=== PATIENT | female | born 1980 | race Two or more races ===

== ENCOUNTER 2019-04-14 07:58 | Inpatient (IN) ==
[2019-04-14 08:07] VITALS: BMI 40.7
--- NOTE | 2019-04-14 08:34 | DR.NAUSEAF ---
HPI Time Seen Time Seen by Provider: 04/14/19 08:25 Primary Care Physician Primary Care Physician: DREW HPI Comment HPI Comment: PATIENT IS 38 YR OLD ER WITH 2 DAYS HISTORY OF NAUSEA, VOMITING AND NOT HOLDING DOWN FLUID OR FOOD. SHE HAS NO SIGNIFICANT PAST MEDICAL ILLNESS. SHE KATHY DIARRHEA, COUGH, CONGESTION OR SINUS DRAINAGE. DID NOT TAKE FLU SHOT. HAVE NOT BEING IN CONTACT WITH SOMEONE SICK. SHE IS WEAK ANE DIZZY. NO ABDOMINAL PAIN. SPEAKING TO PATIENT VIA AN HEARING THERAPIST THAT CAME WITH HER. SHE SPEAK DANISH. Complaints Chief Complaint Doctors Comments: NAUSEA, VOMITING TIMES 2 DAYS. Chief Complaint:: PT C/O NOT BEING ABLE TO HOLD ANYTHING DOWN FOR 2 DAYS ,,BR Self Treatment fo Chief Complaint: PT SPEAKING NO FRENCH , MANAGER INVENTORY CONTROL PRESENT AND WHEN ASKED QUESTIONS PT IS VERY VAGUE AND DOES NOT KNOW ,BR Reviewed Nurses Notes Reviewed: Yes Source History Provided: Patient Mode of Arrival Mode of Arrival: Ambulatory Timing Onset of Chief Complaint: 04/12/19 Context Onset: Spontaneous Recent: None : No History of: None Quality Quality: Food Particles Associated Signs and Symptoms Abdominal Pain Quality: Other (NONE.) Symptoms: denies Fever (NONE OF ABOVE.) Other History Other History: NO PAST MEDICAL ILLNESS REPORTED. PMH PMH Past Medical History: No Past Surgical History: No Family History History of Family Medical Conditions: No Social History Does patient currently use any type of tobacco product: No Have you used tobacco products in the last 12 months: No Type of Tobacco Use: None Does any household member use tobacco: No Alcohol Use: None Do you use any recreational Drugs:: No Lives With: Family Lives Where: Home infectious screening In the last 2 months have you had wt loss of >10#?: NO Have you had fever, night sweats or hemotysis?: No Have you traveled outside the country in the last 6 months?: No Isolation: Standard ROS Review of Systems Constitutional: No Symptoms Reported, See HPI, Weakness and Fatigue; negative Fever Eyes: No Symptoms Reported; negative Blurred Vision and Diplopia ENTM: No Symptoms Reported; negative Ear Pain, Nose Discharge, Nose Congestion and Throat Pain Respiratoy: No Symptoms Reported and See HPI; negative Moist Cough, Short of Breath and Wheezing Cardiovascular: No Symptoms Reported and See HPI; negative Chest Pain and Edema Gastrointestinal/Abdominal: See HPI, Abdominal Pain, Nausea and Vomiting; negative Diarrhea Genitourinary: No Symptoms Reported and See HPI; negative Dysuria, Frequency and Hematuria Neurological: See HPI, Weakness and Dizziness; negative Headache Musculoskeletal: No Symptoms Reported and See HPI Integumentary: See HPI and Dryness Hematologic/Lymphatic: No Symptoms Reported and See HPI; negative Easy Bruising and Swollen Glands Endocrine: No Symptoms Reported, See HPI, Increased Thirst, Increased Urine and Decreased Appetite Psychiatric: No Symptoms Reported and See HPI All Other Systems: Reviewed and Negative PE Vital Signs Vitals: Temperature 96.9 F Pulse Rate 122 Respiratory Rate 20 Blood Pressure 116/66 O2 Sat by Pulse Oximetry 94 General Limitations: No Limitations General Appearance: Alert and In No Apparent Distress Head Head Exam: Normal Inspection and Atraumatic Eyes Eye exam: Normal Appearance and PERRL; negative Scleral Icterus and Conjunctival Injection ENT ENT Exam: Normal Exam, Normal Oropharynx, Normal External Ear Exam and TM's Normal Bilaterally Neck Neck Exam: Normal Inspection and Trachea Midline; negative Tenderness and Lymphadenopathy Chest Chest Inspection: Normal Inspection and Symmetric Chest Wall Rise; negative Tenderness Respiratory Respiratory Exam: Normal Lung Sounds Bilat; negative Accessory Muscle Use, Chest Wall Tenderness and Respiratory Distress Respiratory Exam: Bilateral: Clear to Auscultation Cardiovascular Cardiovascular Exam: Normal Rhythm and Tachycardia; negative Systolic Murmur and Diastolic Murmur Abdominal Exam Abdominal Exam: Normal Inspection, Normal Bowel Sounds and Soft; negative Tenderness Rectal Rectal Exam: Deferred External Exam: Female: Deferred : Speculum Exam (Female): Deferred : Bimanual Exam (female): Deferred Extremities Extremities Exam: Normal Inspection Back Back Exam: Normal Inspection Neurologic Neurological Exam: Alert, Oriented X3 and CN II-XII Intact; negative Motor Sensory Deficit Psychiatric Psychiatric Exam: Normal Affect and Normal Mood Skin Skin Exam: Dry MDM Differential Diagnosis Differential Diagnosis: Considerations may Include:: Bowel Obstruction, Cholecystitis, Diabetes/DKA, Gastritis, Gastroenteritis, Inflammatory BD, Pancreatitis, , PUD, Urinary Tract Infection and Urolithiasis COURSE Treatment Treatment: SEE ORDERS. NS ONE LITER IV BOLUS. Consultation Consultation Comments: DISCUSSED PATIENT WITH DR. GO, HE WILL ADMIT PATIENT. Education/Counseling Education/Counseling: Patient and Family Educated On: Diagnosis ROR Labs Reviewed Laboratory Results Reviewed?: Yes Result Diagrams: 04/19/19 05:28 04/19/19 05:28 Laboratory: 04/14/19 11:37 Urine,Clean Catch Urine Culture - Final Escherichia Coli WBC 13.7 X10^3/uL (3.6-10.0) H 04/14/19 09:09 RBC 3.99 X10^6/uL (3.5-5.4) 04/14/19 09:09 Hgb 11.6 g/dL (12.0-16.0) L 04/14/19 09:09 Hct 34.5 % (36.0-47.0) L 04/14/19 09:09 MCV 86.6 fL (80.0-100.0) 04/14/19 09:09 MCH 29.2 pg (27.0-34.0) 04/14/19 09:09 MCHC 33.7 g/dL (33.0-35.0) 04/14/19 09:09 RDW 15.8 % (11.6-16.5) 04/14/19 09:09 Plt Count 1091 X10^3/uL (150.0-450.0) H* 04/14/19 09:09 Plt Count Comment Increased (ADEQUATE) A 04/14/19 09:09 MPV 7.2 fL (7.4-11.0) L 04/14/19 09:09 Neut % (Auto) 82.3 % (42.0-75.0) H 04/14/19 09:09 Lymph % (Auto) 10.6 % (21.0-51.0) L 04/14/19 09:09 [place] % (Auto) 6.0 % (0.0-13.0) 04/14/19 09:09 Eos % (Auto) 0.4 % (0.9-2.9) L 04/14/19 09:09 Baso % (Auto) 0.7 % (0.2-1.0) 04/14/19 09:09 Neut # (Auto) 11.3 x10^3/uL (2.2-4.8) H 04/14/19 09:09 Lymph # (Auto) 1.5 X10^3/uL (1.3-2.9) 04/14/19 09:09 Isabela # (Auto) 0.8 x10^3/uL (0.3-0.8) 04/14/19 09:09 Eos # (Auto) 0.1 x10^3/uL (0.0-0.2) 04/14/19 09:09 Baso # (Auto) 0.1 X10^3/uL (0.0-0.1) 04/14/19 09:09 Absolute Nucleated RBC 0.0 /100WBC 04/14/19 09:09 Plt Morphology Comment Normal (NORMAL) 04/14/19 09:09 RBC Morphology Normal (NORMAL) 04/14/19 09:09 Sodium 125 mmol/L (136-145) L* 04/14/19 09:09 Corrected Sodium 133 mmol/L (136-145) L 04/14/19 09:09 Potassium 4.5 mmol/L (3.5-5.1) 04/14/19 09:09 Chloride 93 mmol/L (98-107) L 04/14/19 09:09 Carbon Dioxide 17.2 mmol/L (21-32) L 04/14/19 09:09 BUN 46 mg/dL (7-18) H 04/14/19 09:09 Creatinine 2.82 mg/dL (0.55-1.02) H 04/14/19 09:09 Est GFR (MDRD) Af Amer 24 (>60) L 04/14/19 09:09 Est GFR (MDRD) Non-Af 20 (>60) L 04/14/19 09:09 Glucose 416 mg/dL (65-99) H 04/14/19 09:09 POC Glucose (mg/dL) 333 mg/dL (65-99) H 04/14/19 13:37 Hemoglobin A1c 11.9 % 04/14/19 09:09 Calcium 9.3 mg/dL (8.5-10.1) 04/14/19 09:09 Corrected Calcium 10.8 mg/dL (8.5-10.1) H 04/14/19 09:09 Total Bilirubin 1.00 mg/dL (0.2-1.0) 04/14/19 09:09 AST 29 Units/L (15-37) 04/14/19 09:09 ALT 25 Units/L (12-78) 04/14/19 09:09 Alkaline Phosphatase 177 Units/L (46-116) H 04/14/19 09:09 Total Protein 8.7 g/dL (6.4-8.2) H 04/14/19 09:09 Albumin 2.1 g/dL (3.4-5.0) L 04/14/19 09:09 Globulin 6.6 g/dL (2.5-4.5) H 04/14/19 09:09 Albumin/Globulin Ratio 0.3 Ratio (1.1-2.1) L 04/14/19 09:09 Amylase 64 Units/L (25-115) 04/14/19 09:09 Lipase 652 Units/L (73-393) H 04/14/19 09:09 HCG, Qual Negative <10 mIU/mL 04/14/19 09:09 Specimen Type Clean catch urine 04/14/19 11:37 Urine Color Yellow (YELLOW) 04/14/19 11:37 Urine Appearance Cloudy (CLEAR) 04/14/19 11:37 Urine pH 6.0 (5.0 - 8.0) 04/14/19 11:37 Ur Specific [place] 1.010 (1.000-1.030) 04/14/19 11:37 Urine Protein 3+ (NEGATIVE) 04/14/19 11:37 Urine Glucose (UA) 4+ (NEGATIVE) 04/14/19 11:37 Urine Ketones 1+ (NEGATIVE) 04/14/19 11:37 Urine Occult Blood 4+ (NEGATIVE) 04/14/19 11:37 Urine Nitrite Negative (NEGATIVE) 04/14/19 11:37 Urine Bilirubin Negative (NEGATIVE) 04/14/19 11:37 Urine Urobilinogen Normal (NORMAL) 04/14/19 11:37 Ur Leukocyte Esterase 3+ (NEGATIVE) 04/14/19 11:37 Urine RBC 10-20 /HPF (0-3) A 04/14/19 11:37 Urine WBC 20-30 /HPF (0-5) A 04/14/19 11:37 Ur Squamous Epith Cells Rare /HPF (NEGATIVE) 04/14/19 11:37 Urine Bacteria Negative /HPF (NEGATIVE) 04/14/19 11:37 Urine Mucus Moderate /HPF (NEGATIVE) 04/14/19 11:37 Ur Culture Indicated? Yes/culture set up 04/14/19 11:37 Acetone, Semi-Quant Negative (NEGATIVE) 04/14/19 09:09 Influenza Type A (PCR) Negative (NEGATIVE) 04/14/19 09:09 Influenza Type B (PCR) Negative (NEGATIVE) 04/14/19 09:09 S. pyogenes (TEM-PCR) Not detected (NOT DETECT) 04/14/19 09:09 XRAY XRAY Interpreted by: Radiologist (REPORT NOTED.) and Self (NO ACUTE FINDINGS.DISCUSSED WITH PATIENT.) Opioid Opioid Risk Tool Age (Alvaro box if 16-45): Yes History of Preadolescent Sexual Abuse: No Total: 1 Total Score Risk Category: Low Risk Copyright: Haris DUENAS predicting aberrant behaviors Diagnosis Discharge Problem: Diabetes mellitus, new onset, Elevated lipase UTI (urinary tract infection) Qualifiers: Urinary tract infection type: acute cystitis Hematuria presence: with hematuria Qualified Code(s): N30.01 - Acute cystitis with hematuria Instructions Instructions: Type 2 Diabetes Mellitus, Diagnosis, Adult Tips for Eating Away From Home If You Have Diabetes Diabetes Mellitus and Sick Day Management Hyperglycemia, [id number] Type 2 Diabetes Mellitus, Self Care, Adult, Letm-ev-Pyow Pyelonephritis, Adult, Zcri-on-Onjg Coping With Diabetes Blood Glucose Monitoring, Adult E. Coli Infection Diabetes Mellitus and Nutrition Forms: Patient Portal
[2019-04-14] MEDS ORDERED: ZOFRAN INJ 4 MG VIAL IM ONE (08:55)
[2019-04-14] MEDS ORDERED: ZOFRAN INJ 4 MG VIAL ONE (09:03)
[2019-04-14 09:15] LABS: BASOPHILS # (AUTO) 0.1 X10^3/uL (0.0-0.1); BASOPHILS % (AUTO) 0.7 % (0.2-1.0); EOSINOPHILS # (AUTO) 0.1 x10^3/uL (0.0-0.2); EOSINOPHILS % (AUTO) 0.4 % (0.9-2.9); HEMATOCRIT 34.5 % (36.0-47.0); HEMOGLOBIN 11.6 g/dL (12.0-16.0); LYMPHOCYTES # (AUTO) 1.5 X10^3/uL (1.3-2.9); LYMPHOCYTES % (AUTO) 10.6 % (21.0-51.0); MEAN CORPUSCULAR HEMOGLOBIN 29.2 pg (27.0-34.0); MEAN CORPUSCULAR HGB CONC 33.7 g/dL (33.0-35.0); MEAN CORPUSCULAR VOLUME 86.6 fL (80.0-100.0); MEAN PLATELET VOLUME 7.2 fL (7.4-11.0); MONOCYTES # (AUTO) 0.8 x10^3/uL (0.3-0.8); NEUTROPHILS # (AUTO) 11.3 x10^3/uL (2.2-4.8); NEUTROPHILS % (AUTO) 82.3 % (42.0-75.0); RED BLOOD COUNT 3.99 X10^6/uL (3.5-5.4); RED CELL DISTRIBUTION WIDTH 15.8 % (11.6-16.5); WHITE BLOOD COUNT 13.7 X10^3/uL (3.6-10.0)
[2019-04-14 09:25] LABS: CALCIUM 9.3 mg/dL (8.5-10.1); CARBON DIOXIDE 17.2 mmol/L (21-32); CREATININE 2.82 mg/dL (0.55-1.02)
[2019-04-14 09:26] LABS: PLATELET COUNT 1091 X10^3/uL (150.0-450.0)
[2019-04-14 09:28] LABS: PLATELET MORPHOLOGY COMMENT NORMAL (NORMAL)
[2019-04-14 09:30] LABS: ALBUMIN 2.1 g/dL (3.4-5.0); COR CA(FOR HYPOALB) 10.8 mg/dL (8.5-10.1); TOTAL PROTEIN 8.7 g/dL (6.4-8.2)
[2019-04-14 09:34] LABS: SERUM PREGNANCY TEST, QUAL NEGATIVE <10 mIU/mL
[2019-04-14] MEDS ORDERED: NS 1000 ML 1,000 ML IV ONE (09:50)
[2019-04-14] MEDS ORDERED: NS 1000 ML 1,000 ML ONE (09:51)
[2019-04-14 09:55] LABS: STREP A BY PCR NOT DETECTED (NOT DETECT)
[2019-04-14 11:44] LABS: BILIRUBIN,URINE NEGATIVE (NEGATIVE); KETONES,URINE 1+ (NEGATIVE); NITRITES,URINE NEGATIVE (NEGATIVE)
[2019-04-14 11:50] LABS: BLOOD/HEMOGLOBIN,URINE 4+ (NEGATIVE); GLUCOSE, URINE 4+ (NEGATIVE); LEUKOCYTE ESTERASE ,URINE 3+ (NEGATIVE); PROTEIN,URINE 3+ (NEGATIVE); UROBILINOGEN,URINE NORMAL (NORMAL)
[2019-04-14 12:03] LABS: APPEARANCE,URINE CLOUDY (CLEAR); COLOR,URINE YELLOW (YELLOW)
[2019-04-14 12:04] LABS: BACTERIA,URINE NEGATIVE /HPF (NEGATIVE); MUCUS,URINE MODERATE /HPF (NEGATIVE); SQUAMOUS EPITHELIAL CELL,UR RARE /HPF (NEGATIVE)
[2019-04-14] MEDS ORDERED: AFLURIA II4 or FLUARIX II4 IM ONE ×2 (16:14→20:21)
[2019-04-14] MEDS: NS 1000 ML 1,000 ML IV SCH ×2 (16:18→23:45)
[2019-04-14] MEDS ORDERED: GLUCOPHAGE PO SCH (17:00)
[2019-04-14] MEDS ORDERED: GLUCOPHAGE ONE (17:02)
[2019-04-14] MEDS: PROTONIX INJ 40 MG VIAL IVP SCH (18:01)
[2019-04-14] MEDS: HumuLIN R SUBCUT PRN ×2 (18:02→21:05)
[2019-04-14] MEDS ORDERED: SNACK - Diabetic Appropriate PO SCH (20:00)
[2019-04-14] MEDS: SNACK - Diabetic Appropriate PO SCH (20:59)
[2019-04-15] MEDS: NS 1000 ML 1,000 ML IV SCH ×4 (00:22→17:18)
[2019-04-15 06:07] LABS: BASOPHILS # (AUTO) 0.2 X10^3/uL (0.0-0.1); BASOPHILS % (AUTO) 1.4 % (0.2-1.0); EOSINOPHILS % (AUTO) 0.3 % (0.9-2.9); HEMATOCRIT 31.3 % (36.0-47.0); HEMOGLOBIN 10.4 g/dL (12.0-16.0); LYMPHOCYTES # (AUTO) 1.5 X10^3/uL (1.3-2.9); LYMPHOCYTES % (AUTO) 11.9 % (21.0-51.0); MEAN CORPUSCULAR HEMOGLOBIN 29.1 pg (27.0-34.0); MEAN CORPUSCULAR HGB CONC 33.3 g/dL (33.0-35.0); MEAN CORPUSCULAR VOLUME 87.4 fL (80.0-100.0); MEAN PLATELET VOLUME 7.4 fL (7.4-11.0); MONOCYTES # (AUTO) 0.9 x10^3/uL (0.3-0.8); MONOCYTES % (AUTO) 7.4 % (0.0-13.0); NEUTROPHILS # (AUTO) 9.9 x10^3/uL (2.2-4.8); PLATELET COUNT 852 X10^3/uL (150.0-450.0); RED BLOOD COUNT 3.58 X10^6/uL (3.5-5.4); RED CELL DISTRIBUTION WIDTH 15.7 % (11.6-16.5); WHITE BLOOD COUNT 12.5 X10^3/uL (3.6-10.0)
[2019-04-15 06:15] LABS: ALBUMIN 1.8 g/dL (3.4-5.0); CALCIUM 8.5 mg/dL (8.5-10.1); CARBON DIOXIDE 17.9 mmol/L (21-32); COR CA(FOR HYPOALB) 10.3 mg/dL (8.5-10.1); CREATININE 2.5 mg/dL (0.55-1.02); TOTAL PROTEIN 7.4 g/dL (6.4-8.2)
[2019-04-15 06:18] LABS: PLATELET MORPHOLOGY COMMENT NORMAL (NORMAL)
[2019-04-15] MEDS: HumuLIN R SUBCUT PRN ×4 (06:21→21:12)
[2019-04-15] MEDS ORDERED: AMARYL TAB 4 MG PO SCH (07:00)
--- NOTE | 2019-04-15 09:39 | CT ---
HISTORYN/V ABD TENDERNESS, PANCREATITIS. NEW ONSET OF DM, PATIENT'S GFR:20 DRANK ORAL CONTRASTSTUDYCT abdomen and pelvis after oral enhancement of the intestinal tract but without intravenous contrast infusion. Sagittal and coronal reformations were provided. Dose reduction techniques were utilized.COMPARISONNoneFINDINGSThe visualized lung bases are clear. There is no effusion. The liver and spleen and pancreas and adrenal glands are unremarkable. The gallbladder is unremarkable. There is stranding of fat planes about the kidneys in there are multiple tiny bubbles of gas around the upper pole of the right kidney some of which appear to be subcapsular. There is no hydronephrosis or renal calculus demonstrated. Kidneys appear swollen. There is no ascites or retroperitoneal adenopathy. There is no bowel distention or inflammation of bowel. The uterus is unremarkable. There is no adnexal mass. The urinary bladder is unremarkable. The appendix is normal. 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
[2019-04-15] MEDS: PROTONIX INJ 40 MG VIAL IVP SCH (09:40)
--- NOTE | 2019-04-15 14:28 | DR.H&P ---
H&P - History & Physical for Day of: H&P Date: 04/14/19 - Chief Complaint Chief Complaint: N/V, WEAKNESS, FEVER - History of Present Illness History of Present Illness: PT IS 38 FEMALE ER ADMISSION WITH NEW ONSET DM, DEHYDRATION, HYPONATREMIA. PT DENIES ANY PMH OF DM OR HTN. PT HAD NEGATIVE ACETONE NEGATIVE ON ADMISSION. PT STARTED ON SSI, NPO, IV HYDRATION. - Past Medical History Past Medical History: denies: Asthma, Coronary Artery Disease, Hypertension, Hypothyroidism - Past Surgical History Surgical History: No History - Family History Family Medical History: Diabetes Mellitus, Hypertension - Social History Does patient currently use any type of tobacco product: No Have you used tobacco products in the last 12 months: No Type of Tobacco Use: None Does any household member use tobacco: No Alcohol Use: None - Medications Home Medications: No Known Drug Allergies Allergy (Verified 04/14/19 08:01) CONTINUE taking the following medications NK 04/14/19 [History] - Review of Systems Constitutional: Weakness Eyes: No Symptoms Reported ENT: No Symptoms Reported Respiratory: No Symptoms Reported Cardiovascular: No Symptoms Reported Gastrointestinal: Nausea, Vomiting, Abdominal Pain Genitourinary: Frequency Musculoskeletal: No Symptoms Reported Skin: No Symptoms Reported Neurological: No Symptoms Reported - Physical Exam Vital Signs: Temperature 97.5 F Pulse Rate [Left Brachial] 98 Pulse Rate 122 Respiratory Rate 18 Blood Pressure [Left Arm] 131/68 Blood Pressure 116/66 O2 Sat by Pulse Oximetry 96 Oriented: Normal Eyes: Normal Ear: Normal Nose: Normal Throat: Normal Respiratory: RLL Diminished, LLL Diminished Cardiovascular: Normal : Normal Auscultation: Bowel Sounds: Normal Palpation: Normal Tenderness: Epigastric, Periumbilical, Mild Skin: Decreased Turgur Musculoskeletal: Back:Thoracic, Back:Lumbar Psychiatric: Anxiety Affect: Anxious Speech Pattern: Clear, Appropriate - Assessment/Plan (1) Diabetes mellitus, new onset Status: Acute Plan: ADMIT, IV HYDRATION SSI. SERUM ACETONE, BP CONTROL. STRICT I &OS, CT ABDPELVIS Q AM. NPO, ABG ON ADMISSION. PPI THERAPY, NAUSEA CONTROL. AMYLASE/LIPASE (2) Dehydration Status: Acute (3) Acute hyponatremia Status: Acute - Allergies Allergies/Adverse Reactions: Allergies Allergy/AdvReac Type Severity Reaction Status Date / Time No Known Drug Allergies Allergy Verified 04/14/19 08:01
[2019-04-15] MEDS: ROCEPHIN VIAL 1 GRAM 1 G in NS 100 ML IV + SPIKE MINIBAG* 100 ML IV SCH (18:35)
[2019-04-15] MEDS: SNACK - Diabetic Appropriate PO SCH (20:53)
[2019-04-16] MEDS: NS 1000 ML 1,000 ML IV SCH ×5 (00:05→17:18)
[2019-04-16 05:54] LABS: BASOPHILS # (AUTO) 0.1 X10^3/uL (0.0-0.1); BASOPHILS % (AUTO) 1.3 % (0.2-1.0); EOSINOPHILS % (AUTO) 0.3 % (0.9-2.9); HEMATOCRIT 28.7 % (36.0-47.0); HEMOGLOBIN 9.5 g/dL (12.0-16.0); LYMPHOCYTES # (AUTO) 1.6 X10^3/uL (1.3-2.9); LYMPHOCYTES % (AUTO) 13.6 % (21.0-51.0); MEAN CORPUSCULAR HGB CONC 33.2 g/dL (33.0-35.0); MEAN CORPUSCULAR VOLUME 87.3 fL (80.0-100.0); MEAN PLATELET VOLUME 7.1 fL (7.4-11.0); MONOCYTES # (AUTO) 0.8 x10^3/uL (0.3-0.8); MONOCYTES % (AUTO) 6.6 % (0.0-13.0); NEUTROPHILS # (AUTO) 9.2 x10^3/uL (2.2-4.8); NEUTROPHILS % (AUTO) 78.2 % (42.0-75.0); PLATELET COUNT 867 X10^3/uL (150.0-450.0); RED BLOOD COUNT 3.29 X10^6/uL (3.5-5.4); RED CELL DISTRIBUTION WIDTH 15.6 % (11.6-16.5); WHITE BLOOD COUNT 11.8 X10^3/uL (3.6-10.0)
[2019-04-16 06:08] LABS: ALBUMIN 1.6 g/dL (3.4-5.0); CALCIUM 8.3 mg/dL (8.5-10.1); CARBON DIOXIDE 17.1 mmol/L (21-32); COR CA(FOR HYPOALB) 10.2 mg/dL (8.5-10.1); CREATININE 2.13 mg/dL (0.55-1.02)
[2019-04-16] MEDS: HumuLIN R SUBCUT PRN (06:20)
[2019-04-16 06:28] LABS: PLATELET MORPHOLOGY COMMENT NORMAL (NORMAL)
[2019-04-16] MEDS: PROTONIX INJ 40 MG VIAL IVP SCH (11:05)
[2019-04-16] MEDS: ROCEPHIN VIAL 1 GRAM 1 G in NS 100 ML IV + SPIKE MINIBAG* 100 ML IV SCH (11:06)
[2019-04-16] MEDS: SNACK - Diabetic Appropriate PO SCH (20:30)
[2019-04-17 06:09] LABS: BASOPHILS # (AUTO) 0.1 X10^3/uL (0.0-0.1); BASOPHILS % (AUTO) 0.8 % (0.2-1.0); EOSINOPHILS # (AUTO) 0.1 x10^3/uL (0.0-0.2); EOSINOPHILS % (AUTO) 0.6 % (0.9-2.9); HEMATOCRIT 30.1 % (36.0-47.0); HEMOGLOBIN 10.1 g/dL (12.0-16.0); LYMPHOCYTES # (AUTO) 1.4 X10^3/uL (1.3-2.9); MEAN CORPUSCULAR HEMOGLOBIN 29.5 pg (27.0-34.0); MEAN CORPUSCULAR HGB CONC 33.5 g/dL (33.0-35.0); MEAN CORPUSCULAR VOLUME 88.1 fL (80.0-100.0); MEAN PLATELET VOLUME 7.2 fL (7.4-11.0); MONOCYTES # (AUTO) 0.7 x10^3/uL (0.3-0.8); MONOCYTES % (AUTO) 6.4 % (0.0-13.0); NEUTROPHILS # (AUTO) 8.4 x10^3/uL (2.2-4.8); NEUTROPHILS % (AUTO) 79.2 % (42.0-75.0); PLATELET COUNT 718 X10^3/uL (150.0-450.0); RED BLOOD COUNT 3.41 X10^6/uL (3.5-5.4); RED CELL DISTRIBUTION WIDTH 15.9 % (11.6-16.5); WHITE BLOOD COUNT 10.6 X10^3/uL (3.6-10.0)
[2019-04-17 06:27] LABS: ALBUMIN 1.6 g/dL (3.4-5.0); CALCIUM 8.1 mg/dL (8.5-10.1); CARBON DIOXIDE 16.5 mmol/L (21-32); CREATININE 1.98 mg/dL (0.55-1.02); TOTAL PROTEIN 6.8 g/dL (6.4-8.2)
[2019-04-17 06:45] LABS: PLATELET MORPHOLOGY COMMENT NORMAL (NORMAL)
[2019-04-17] MEDS: NS 1000 ML 1,000 ML IV SCH ×3 (07:57→17:15)
[2019-04-17] MEDS: PROTONIX INJ 40 MG VIAL IVP SCH ×2 (08:40→20:37)
[2019-04-17] MEDS: ROCEPHIN VIAL 1 GRAM 1 G in NS 100 ML IV + SPIKE MINIBAG* 100 ML IV SCH (08:41)
[2019-04-17 13:11] LABS: ABG BASE EXCESS -9.3 mmol/L (-2.0-2.0)
[2019-04-17 13:12] LABS: ABG HCO3 15.1 mmol/L (22-26)
[2019-04-17] MEDS: ZOFRAN INJ 4 MG VIAL IVP SCH ×2 (14:11→20:37)
[2019-04-17] MEDS: SNACK - Diabetic Appropriate PO SCH (20:37)
[2019-04-18] MEDS: NS 1000 ML 1,000 ML IV SCH ×4 (01:11→21:50)
[2019-04-18] MEDS: ZOFRAN INJ 4 MG VIAL IVP SCH (05:17)
[2019-04-18 05:33] LABS: BASOPHILS % (AUTO) 0.2 % (0.2-1.0); EOSINOPHILS # (AUTO) 0.1 x10^3/uL (0.0-0.2); EOSINOPHILS % (AUTO) 0.9 % (0.9-2.9); HEMATOCRIT 28.5 % (36.0-47.0); HEMOGLOBIN 9.4 g/dL (12.0-16.0); LYMPHOCYTES # (AUTO) 1.7 X10^3/uL (1.3-2.9); LYMPHOCYTES % (AUTO) 18.5 % (21.0-51.0); MEAN CORPUSCULAR HEMOGLOBIN 29.1 pg (27.0-34.0); MEAN CORPUSCULAR HGB CONC 33.1 g/dL (33.0-35.0); MEAN CORPUSCULAR VOLUME 87.9 fL (80.0-100.0); MONOCYTES # (AUTO) 0.6 x10^3/uL (0.3-0.8); MONOCYTES % (AUTO) 6.8 % (0.0-13.0); NEUTROPHILS # (AUTO) 6.8 x10^3/uL (2.2-4.8); NEUTROPHILS % (AUTO) 73.6 % (42.0-75.0); PLATELET COUNT 727 X10^3/uL (150.0-450.0); RED BLOOD COUNT 3.25 X10^6/uL (3.5-5.4); RED CELL DISTRIBUTION WIDTH 15.7 % (11.6-16.5); WHITE BLOOD COUNT 9.2 X10^3/uL (3.6-10.0)
[2019-04-18 05:45] LABS: ALBUMIN 1.6 g/dL (3.4-5.0); CARBON DIOXIDE 17.2 mmol/L (21-32); COR CA(FOR HYPOALB) 9.9 mg/dL (8.5-10.1); CREATININE 1.77 mg/dL (0.55-1.02); TOTAL PROTEIN 6.6 g/dL (6.4-8.2)
[2019-04-18 05:50] LABS: PLATELET MORPHOLOGY COMMENT NORMAL (NORMAL)
[2019-04-18] MEDS: HumuLIN R SUBCUT PRN (05:50)
[2019-04-18] MEDS: ROCEPHIN VIAL 1 GRAM 1 G in NS 100 ML IV + SPIKE MINIBAG* 100 ML IV SCH (09:04)
[2019-04-18] MEDS: PROTONIX INJ 40 MG VIAL IVP SCH ×2 (09:04→20:21)
--- NOTE | 2019-04-18 09:27 | RAD ---
HISTORYABD PAIN, DISTENTION, N/DSTUDYAcute abdominal seriesCOMPARISONCT abdomen and pelvis on April 15FINDINGSThe lungs are grossly clear and the heart size is prominent. There is no edema or effusion.The bowel gas pattern is unremarkable. No urinary tract calcification is demonstrated. There is residual barium from CT exam in the rectum. No significant bony abnormality is demonstrated.IMPRESSIONNegativeElectronically signed by: ABRAHAM RIVERA (Apr 18, 2019 09:26:26)
[2019-04-18] MEDS: ZOFRAN INJ 4 MG VIAL IVP PRN ×2 (10:37→17:50)
[2019-04-18] MEDS: INVANZ INJ 1 GM VIAL 1 GM in NS 100 ML IV + SPIKE MINIBAG* 100 ML IV SCH (10:37)
[2019-04-18] MEDS: SNACK - Diabetic Appropriate PO SCH (20:20)
[2019-04-19] MEDS: NS 1000 ML 1,000 ML IV SCH ×5 (02:23→17:24)
[2019-04-19 06:08] LABS: BASOPHILS # (AUTO) 0.3 X10^3/uL (0.0-0.1); BASOPHILS % (AUTO) 3.4 % (0.2-1.0); EOSINOPHILS # (AUTO) 0.1 x10^3/uL (0.0-0.2); EOSINOPHILS % (AUTO) 1.1 % (0.9-2.9); LYMPHOCYTES # (AUTO) 1.5 X10^3/uL (1.3-2.9); LYMPHOCYTES % (AUTO) 20.4 % (21.0-51.0); MEAN CORPUSCULAR HEMOGLOBIN 30.3 pg (27.0-34.0); MEAN CORPUSCULAR HGB CONC 34.4 g/dL (33.0-35.0); MEAN CORPUSCULAR VOLUME 88.1 fL (80.0-100.0); MEAN PLATELET VOLUME 7.1 fL (7.4-11.0); MONOCYTES # (AUTO) 0.5 x10^3/uL (0.3-0.8); NEUTROPHILS # (AUTO) 5.1 x10^3/uL (2.2-4.8); NEUTROPHILS % (AUTO) 68.1 % (42.0-75.0); PLATELET COUNT 656 X10^3/uL (150.0-450.0); RED BLOOD COUNT 2.96 X10^6/uL (3.5-5.4); RED CELL DISTRIBUTION WIDTH 15.4 % (11.6-16.5); WHITE BLOOD COUNT 7.5 X10^3/uL (3.6-10.0)
[2019-04-19 06:17] LABS: ALBUMIN 1.6 g/dL (3.4-5.0); CALCIUM 7.9 mg/dL (8.5-10.1); CARBON DIOXIDE 18.8 mmol/L (21-32); COR CA(FOR HYPOALB) 9.8 mg/dL (8.5-10.1); CREATININE 1.7 mg/dL (0.55-1.02); TOTAL PROTEIN 6.3 g/dL (6.4-8.2)
[2019-04-19 06:37] LABS: PLATELET MORPHOLOGY COMMENT NORMAL (NORMAL)
[2019-04-19] MEDS: INVANZ INJ 1 GM VIAL 1 GM in NS 100 ML IV + SPIKE MINIBAG* 100 ML IV SCH (09:44)
[2019-04-19] MEDS: PROTONIX INJ 40 MG VIAL IVP SCH ×2 (09:44→20:22)
[2019-04-19 13:49] LABS: ABG BASE EXCESS -3.9 mmol/L (-2.0-2.0); ABG HCO3 20.8 mmol/L (22-26)
[2019-04-19 13:50] LABS: ABG ALLEN TEST POS
--- NOTE | 2019-04-19 14:51 | RAD ---
HISTORYDiminished lung soundsSTUDYPortable AP [id number] normal heart size with grossly clear lungs. Lungs are underinflated, related to incomplete inspiration and portable technique. There is no evidence for pneumothorax or pleural effusion.IMPRESSIONNo acute or significant chest abnormality demonstrated.Electronically signed by: MIKE THOMAS (Apr 19, 2019 14:49:48)
[2019-04-19] MEDS: ZOFRAN INJ 4 MG VIAL IVP PRN (17:04)
[2019-04-19] MEDS: SNACK - Diabetic Appropriate PO SCH (20:16)
[2019-04-19] MEDS: HumuLIN R SUBCUT PRN (20:35)
[2019-04-20] MEDS: NS 1000 ML 1,000 ML IV SCH ×4 (00:09→18:00)
[2019-04-20 06:27] LABS: BASOPHILS # (AUTO) 0.1 X10^3/uL (0.0-0.1); BASOPHILS % (AUTO) 1.3 % (0.2-1.0); EOSINOPHILS # (AUTO) 0.1 x10^3/uL (0.0-0.2); EOSINOPHILS % (AUTO) 1.4 % (0.9-2.9); HEMATOCRIT 26.4 % (36.0-47.0); LYMPHOCYTES # (AUTO) 1.7 X10^3/uL (1.3-2.9); LYMPHOCYTES % (AUTO) 24.9 % (21.0-51.0); MEAN CORPUSCULAR HEMOGLOBIN 29.8 pg (27.0-34.0); MEAN CORPUSCULAR HGB CONC 33.9 g/dL (33.0-35.0); MEAN CORPUSCULAR VOLUME 87.7 fL (80.0-100.0); MEAN PLATELET VOLUME 6.8 fL (7.4-11.0); MONOCYTES # (AUTO) 0.5 x10^3/uL (0.3-0.8); MONOCYTES % (AUTO) 7.2 % (0.0-13.0); NEUTROPHILS # (AUTO) 4.5 x10^3/uL (2.2-4.8); NEUTROPHILS % (AUTO) 65.2 % (42.0-75.0); PLATELET COUNT 576 X10^3/uL (150.0-450.0); RED BLOOD COUNT 3.01 X10^6/uL (3.5-5.4); RED CELL DISTRIBUTION WIDTH 15.6 % (11.6-16.5); WHITE BLOOD COUNT 6.9 X10^3/uL (3.6-10.0)
[2019-04-20 06:37] LABS: ALBUMIN 1.6 g/dL (3.4-5.0); CALCIUM 7.9 mg/dL (8.5-10.1); CARBON DIOXIDE 21.1 mmol/L (21-32); COR CA(FOR HYPOALB) 9.8 mg/dL (8.5-10.1); CREATININE 1.57 mg/dL (0.55-1.02); TOTAL PROTEIN 6.3 g/dL (6.4-8.2)
[2019-04-20] MEDS: PROTONIX INJ 40 MG VIAL IVP SCH ×2 (08:23→21:05)
[2019-04-20] MEDS: INVANZ INJ 1 GM VIAL 1 GM in NS 100 ML IV + SPIKE MINIBAG* 100 ML IV SCH (08:23)
[2019-04-20] MEDS ORDERED: NS 100 ML IV 100 ML with VENOFER 400 MG IV NR ×2 (10:00)
[2019-04-20] MEDS: SNACK - Diabetic Appropriate PO SCH (20:00)
[2019-04-21] MEDS: NS 1000 ML 1,000 ML IV SCH ×6 (02:56→23:59)
[2019-04-21 06:39] LABS: BASOPHILS # (AUTO) 0.1 X10^3/uL (0.0-0.1); BASOPHILS % (AUTO) 1.1 % (0.2-1.0); EOSINOPHILS # (AUTO) 0.1 x10^3/uL (0.0-0.2); EOSINOPHILS % (AUTO) 1.7 % (0.9-2.9); HEMATOCRIT 25.6 % (36.0-47.0); HEMOGLOBIN 8.7 g/dL (12.0-16.0); LYMPHOCYTES # (AUTO) 1.8 X10^3/uL (1.3-2.9); LYMPHOCYTES % (AUTO) 25.9 % (21.0-51.0); MEAN CORPUSCULAR HEMOGLOBIN 29.4 pg (27.0-34.0); MEAN CORPUSCULAR HGB CONC 34.1 g/dL (33.0-35.0); MEAN CORPUSCULAR VOLUME 86.4 fL (80.0-100.0); MEAN PLATELET VOLUME 6.3 fL (7.4-11.0); MONOCYTES # (AUTO) 0.5 x10^3/uL (0.3-0.8); MONOCYTES % (AUTO) 6.8 % (0.0-13.0); NEUTROPHILS # (AUTO) 4.4 x10^3/uL (2.2-4.8); NEUTROPHILS % (AUTO) 64.5 % (42.0-75.0); PLATELET COUNT 557 X10^3/uL (150.0-450.0); RED BLOOD COUNT 2.97 X10^6/uL (3.5-5.4); RED CELL DISTRIBUTION WIDTH 15.7 % (11.6-16.5); WHITE BLOOD COUNT 6.8 X10^3/uL (3.6-10.0)
[2019-04-21 06:42] LABS: ALBUMIN 1.7 g/dL (3.4-5.0); CALCIUM 8.1 mg/dL (8.5-10.1); CARBON DIOXIDE 22.2 mmol/L (21-32); COR CA(FOR HYPOALB) 9.9 mg/dL (8.5-10.1); CREATININE 1.46 mg/dL (0.55-1.02); TOTAL PROTEIN 6.4 g/dL (6.4-8.2)
--- NOTE | 2019-04-21 07:13 | US ---
HISTORYAcute renal insufficiencySTUDYRENAL SONOGRAMTechnique: Multiple grayscale sonographic images were obtained.COMPARISONNoneFINDINGSThe right kidney measured 12 by 5.5 x 7 cm. Cortical thickness and cortical echogenicity are normal. No solid masses, hydronephrosis, stones, or perinephric fluid collections are identified. The left kidney measures 11.8 x 6.4 x 6.4 cm. Cortical thickness and cortical echogenicity were normal. No solid masses, stones, hydronephrosis, or perinephric fluid collections were identified.IMPRESSIONNo significant abnormality identifiedElectronically signed by: SCOTT ANGEL (Apr 21, 2019 07:11:14)
[2019-04-21] MEDS: ZOFRAN INJ 4 MG VIAL IVP PRN (08:43)
[2019-04-21] MEDS: PROTONIX INJ 40 MG VIAL IVP SCH ×2 (08:45→21:15)
[2019-04-21] MEDS: INVANZ INJ 1 GM VIAL 1 GM in NS 100 ML IV + SPIKE MINIBAG* 100 ML IV SCH (08:46)
--- NOTE | 2019-04-21 11:55 | CT ---
HISTORYABD PAIN, N/VSTUDYCT of abdomen and pelvis after oral enhancement of the gastrointestinal tract. Sagittal and coronal reformations were provided. Dose reduction techniques were utilized.COMPARISONFebruary 2019FINDINGSThe lung bases remain clear. The liver and spleen and pancreas and adrenal glands are unremarkable. There is resolution of previously demonstrated gas subcapsular about the upper pole of the right kidney. Stranding of fat planes about the kidneys persists but is improved, left greater than right. There is no renal calculus or hydronephrosis. The kidneys remain enlarged. The gallbladder is unremarkable. There is no ascites or adenopathy or bowel distention. The uterus is unremarkable. There is no adnexal mass. There is no bony abnormality.IMPRESSIONPersistent stranding of fat planes about the enlarged kidneys, left worse than right, although improved from April 15. Findings may be secondary to pyelonephritis. Otherwise unremarkable exam.Electronically signed by: ABRAHAM RIVERA (Apr 21, 2019 11:54:12)
[2019-04-21] MEDS: HEMOCYTE-PLUS PO SCH (13:47)
[2019-04-21] MEDS ORDERED: SNACK - Diabetic Appropriate PO SCH (20:00)
[2019-04-21] MEDS: SNACK - Diabetic Appropriate PO SCH (20:00)
[2019-04-22] MEDS: NS 1000 ML 1,000 ML IV SCH ×3 (00:04→15:30)
[2019-04-22] MEDS: AMARYL TAB 4 MG PO SCH (06:05)
[2019-04-22 06:06] LABS: BASOPHILS # (AUTO) 0.1 X10^3/uL (0.0-0.1); BASOPHILS % (AUTO) 1.3 % (0.2-1.0); EOSINOPHILS # (AUTO) 0.1 x10^3/uL (0.0-0.2); HEMATOCRIT 26.6 % (36.0-47.0); HEMOGLOBIN 8.9 g/dL (12.0-16.0); LYMPHOCYTES # (AUTO) 2.1 X10^3/uL (1.3-2.9); LYMPHOCYTES % (AUTO) 28.2 % (21.0-51.0); MEAN CORPUSCULAR HEMOGLOBIN 29.2 pg (27.0-34.0); MEAN CORPUSCULAR HGB CONC 33.6 g/dL (33.0-35.0); MEAN CORPUSCULAR VOLUME 86.8 fL (80.0-100.0); MEAN PLATELET VOLUME 6.3 fL (7.4-11.0); MONOCYTES # (AUTO) 0.5 x10^3/uL (0.3-0.8); NEUTROPHILS # (AUTO) 4.6 x10^3/uL (2.2-4.8); NEUTROPHILS % (AUTO) 61.5 % (42.0-75.0); PLATELET COUNT 514 X10^3/uL (150.0-450.0); RED BLOOD COUNT 3.06 X10^6/uL (3.5-5.4); RED CELL DISTRIBUTION WIDTH 15.5 % (11.6-16.5); WHITE BLOOD COUNT 7.4 X10^3/uL (3.6-10.0)
[2019-04-22 06:22] LABS: ALBUMIN 1.7 g/dL (3.4-5.0); CALCIUM 8.1 mg/dL (8.5-10.1); CARBON DIOXIDE 22.8 mmol/L (21-32); COR CA(FOR HYPOALB) 9.9 mg/dL (8.5-10.1); CREATININE 1.45 mg/dL (0.55-1.02); TOTAL PROTEIN 6.4 g/dL (6.4-8.2)
[2019-04-22] MEDS: HEMOCYTE-PLUS PO SCH (09:29)
[2019-04-22] MEDS: INVANZ INJ 1 GM VIAL 1 GM in NS 100 ML IV + SPIKE MINIBAG* 100 ML IV SCH (09:29)
[2019-04-22] MEDS: PROTONIX INJ 40 MG VIAL IVP SCH ×2 (09:29→21:30)
[2019-04-22] MEDS: SNACK - Diabetic Appropriate PO SCH (20:00)
[2019-04-22] MEDS: CIPRO TAB 500 MG PO SCH (21:30)
[2019-04-23] MEDS: NS 1000 ML 1,000 ML IV SCH ×2 (02:03→05:04)
[2019-04-23] MEDS: AMARYL TAB 4 MG PO SCH (06:34)
[2019-04-23 06:44] LABS: BASOPHILS # (AUTO) 0.1 X10^3/uL (0.0-0.1); EOSINOPHILS # (AUTO) 0.2 x10^3/uL (0.0-0.2); EOSINOPHILS % (AUTO) 2.1 % (0.9-2.9); HEMATOCRIT 26.2 % (36.0-47.0); HEMOGLOBIN 8.8 g/dL (12.0-16.0); LYMPHOCYTES # (AUTO) 2.1 X10^3/uL (1.3-2.9); LYMPHOCYTES % (AUTO) 26.6 % (21.0-51.0); MEAN CORPUSCULAR HEMOGLOBIN 28.9 pg (27.0-34.0); MEAN CORPUSCULAR HGB CONC 33.5 g/dL (33.0-35.0); MEAN CORPUSCULAR VOLUME 86.3 fL (80.0-100.0); MEAN PLATELET VOLUME 6.5 fL (7.4-11.0); MONOCYTES # (AUTO) 0.5 x10^3/uL (0.3-0.8); MONOCYTES % (AUTO) 6.5 % (0.0-13.0); NEUTROPHILS % (AUTO) 63.8 % (42.0-75.0); PLATELET COUNT 508 X10^3/uL (150.0-450.0); RED BLOOD COUNT 3.03 X10^6/uL (3.5-5.4); RED CELL DISTRIBUTION WIDTH 15.4 % (11.6-16.5); WHITE BLOOD COUNT 7.8 X10^3/uL (3.6-10.0)
[2019-04-23 07:13] LABS: ALANINE AMINOTRANSFERASE 14 Units/L (12-78); ALBUMIN 1.8 g/dL (3.4-5.0); ALKALINE PHOSPHATASE 79 Units/L (46-116); ASPARTATE AMINO TRANSFERASE 21 Units/L (15-37); BLOOD UREA NITROGEN 13 mg/dL (7-18); CALCIUM 8.1 mg/dL (8.5-10.1); CARBON DIOXIDE 23.2 mmol/L (21-32); CHLORIDE 106 mmol/L (98-107); COR CA(FOR HYPOALB) 9.9 mg/dL (8.5-10.1); CREATININE 1.47 mg/dL (0.55-1.02); SODIUM 139 mmol/L (136-145); TOTAL PROTEIN 6.5 g/dL (6.4-8.2); eGFR NON BLACK RACES 42 (>60)
[2019-04-23] MEDS ORDERED: MAGNESIUM SULFATE 1 GRAM/100 mL PREMIX 1 GM/100 ML BAG IV PRN (08:17)
[2019-04-23] MEDS: HEMOCYTE-PLUS PO SCH (10:26)
[2019-04-23] MEDS: PROTONIX INJ 40 MG VIAL IVP SCH (10:26)
[2019-04-23] MEDS: INVANZ INJ 1 GM VIAL 1 GM in NS 100 ML IV + SPIKE MINIBAG* 100 ML IV SCH (10:27)
[2019-04-23] MEDS: CIPRO TAB 500 MG PO SCH (10:27)
[2019-04-23 16:28] VITALS: BP 127/67
== END 2019-04-23 14:55 | disposition home or self-care (01) | DRG 872 ==
LOC: ER 07:58 → OBS 15:29 → MED/SURG 04-18 12:40
PROVIDERS: ADMIT Internal Medicine; ATTEND Internal Medicine
DX: N30.01 Acute cystitis with hematuria; N17.8 Other acute kidney failure; Z23 Encounter for immunization; E03.8 Other specified hypothyroidism; E86.0 Dehydration; D64.89 Other specified anemias; I10 Essential (primary) hypertension; R78.81 Bacteremia; E87.1 Hypo-osmolality and hyponatremia; I25.10 Atherosclerotic heart disease of native coronary artery without angina pectoris; N10 Acute pyelonephritis; D50.8 Other iron deficiency anemias; R11.2 Nausea with vomiting, unspecified; E11.65 Type 2 diabetes mellitus with hyperglycemia; B96.29 Other Escherichia coli [E. coli] as the cause of diseases classified elsewhere; R42 Dizziness and giddiness
CPT/HCPCS: 36415; 36600; 71010; 71045; 74022; 74176; 76770; 80053; 81001; 82009; 82150; 82270; 82607; 82728; 82746; 82803; 83036; 83540; 83605; 83690; 83735; 84466; 84703; 85025; 87040; 87077; 87086; 87088; 87186; 87502; 87651; 90674; 90686; 96365; 96372; 99284; A4216; A4222; C9113; J0696; J1335; J1756; J1815; J2405; J7030; J7050